=== PATIENT | female | born 2000 | race Caucasian/White ===

== ENCOUNTER 2023-07-03 15:41 | Outpatient (CLI) | payer MEDICAID, SELFPAY | END 2023-07-03 15:42 | disposition home or self-care (01) | LOC: AMB 07-06 12:23 | PROVIDERS: Visit Provider Emergency Medicine Emergency Medical Services | DX: R53.1 Weakness (principal); R06.09 Other forms of dyspnea | CPT/HCPCS: A0425; A0429 ==

== ENCOUNTER 2023-07-03 15:54 | Emergency (ER) | payer MEDICAID, SELFPAY ==
[2023-07-03 15:57] VITALS: BP 140/71; PULSE 75; RESP 18; TEMP 36.7; O2SAT 98; BMI 36.5
--- NOTE | 2023-07-03 16:50 | ED.GENADULT ---
HPI - General Adult General Chief complaint: Chest Pain Stated complaint: Difficulty [id number] heart cond Time Seen by Provider: 07/03/23 15:58 History of Present Illness HPI narrative: This 22-year-old female comes in for evaluation after feeling some lightheadedness and chest tightness when preparing for a trach event just prior to arrival. 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 She reports a prior history of SVT and did have an ablation. She did not really have any symptoms typical of rapid heart rate or irregular heart rate. She states that she felt some tightness in the muscles of her back prior to this and had her dad cracker back. While she was preparing to throw she began to feel more tightness in her chest and had some associated anxiety, lightheadedness, and feeling of shortness of breath. She she feels back to normal currently and arrives here with normal vital signs. Related Data Home Medications Medication Instructions Recorded Confirmed No Known Home Medications 07/03/23 07/03/23 Allergies Allergy/AdvReac Type Severity Reaction Status Date / Time No Known Drug Allergies Allergy Verified 07/03/23 16:07 Review of Systems Status of ROS: Reports: 10 or more systems reviewed and unremarkable except as noted in History and below Narrative: Constitutional: No fevers, no weight gain or loss. Eyes: No discharge. No vision changes. HENT: No congestion, no sore throat, no ear pain. Cardiovascular: No palpitations. Respiratory: No shortness of breath, no wheezes, no cough. Gastrointestinal: No abdominal pain, no vomiting, no diarrhea. Genitourinary: No dysuria, no hematuria. Musculoskeletal: Normal range of motion. Skin: No rashes, no pruritis. Neurological: No dizziness, weakness, sensory change, speech change. Endo/Heme/Allergies: No bruising or bleeding. No polydipsia. Pysch: no suicidality, no anxiety, no insomnia. All other systems reviewed and are negative. PFSH PFSH Social History Smoking Status: Never smoker Do you use any of these nicotine containing products: None How often do you have a drink containing alcohol: never How often do you have six or more drinks on one occasion: Never AUDIT-C Alcohol total score: 0 Non-prescribed substance use: denies use service: No Exam Narrative: Exam Narrative: Constitutional: Well-developed, well-nourished, no acute distress. HEENT: Normocephalic, atraumatic. Neck: Normal range of motion. Nontender. Supple. Heart: Regular. No murmurs. Normal rate. Intact distal pulses. Lungs: Clear to auscultation. No chest discomfort currently. No wheezes, rhonchi, or rales. Abdomen: Normal bowel sounds. Nontender. No rebound tenderness. Genitalia: Deferred. Back: No midline tenderness. Normal range of motion. Extremities: Normal range of motion. No injury. Skin: Intact. No rash. Warm. No erythema or pallor. Neurologic: No altered sensation. No weakness. Alert and oriented. Psychiatric: No suicidality. No anxiety or depression. No insomnia. Nursing notes and vitals signs are reviewed. Const: Vital Signs, click to edit/add: Vital Signs - 24 hr 07/03/23 15:57 Temperature 98.1 F Pulse Rate [Right Pulse Oximeter] 75 Respiratory Rate 18 Blood Pressure [Ri ght Upper Arm] 140/71 H Pulse Oximetry 98 Oxygen Delivery Me thod Room Air Course Vital Signs Vital signs: Initial Vital Signs Temperature 98.1 F 07/03/23 15:57 Temperature Source Temporal Artery Scan 07/03/23 15:57 Pulse Rate 75 07/03/23 15:57 Pulse Rhythm Regular 07/03/23 15:57 Respiratory Rate 18 07/03/23 15:57 Blood Pressure 140/71 H 07/03/23 15:57 Blood Pressure Mean 94 07/03/23 15:57 Blood Pressure Position Semi-Fowlers 07/03/23 15:57 Pulse Oximetry 98 07/03/23 15:57 Oxygen Delivery Method Room Air 07/03/23 15:57 Vital Signs Temperature 98.1 F 07/03/23 15:57 Pulse Rate 75 07/03/23 15:57 Respiratory Rate 18 07/03/23 15:57 Blood Pressure 140/71 H 07/03/23 15:57 Pulse Oximetry 98 07/03/23 15:57 Oxygen Delivery Method Room Air 07/03/23 15:57 Temperature 98.1 F 07/03/23 15:57 Pulse Rate 75 07/03/23 15:57 Respiratory Rate 18 07/03/23 15:57 Blood Pressure 140/71 H 07/03/23 15:57 Pulse Oximetry 98 07/03/23 15:57 Oxygen Delivery Method Room Air 07/03/23 15:57 Medical Decision Making MDM Narrative Medical decision making narrative: This 22-year-old female comes in with her parents because of an episode where she felt tightness in her chest with associated lightheadedness and shortness of breath. These symptoms have completely resolved now and she arrives here with normal vital signs and feeling back to normal. She is involved in some very intense maneuvers on the track team as she throws shot put and swings await to throw for a maximum distance in a competition. The patient's exam is completely normal. I did discuss lab and imaging options with the patient. She does not have any cardiac or pulmonary risk factors. In a process of shared decision-making further testing was declined by the patient and her parents. Her symptoms are more likely musculoskeletal in nature. She did have her back cracked prior to this and may have developed some secondary spasms that triggered anxiety symptoms. The patient is not normally an anxious person but does state that she had anxiety which is expected with symptoms like this. She is okay to be discharged home. She does have follow-up appointment with a doctor. I did describe signs and symptoms that would indicate need for return and re-evaluation. ECG Data Attestation: I personally reviewed and interpreted this ECG as follows: Interpretation: Normal sinus rhythm. Rate is 75 beats per minute. There are no ST or T-wave abnormalities. Discharge Plan Discharge Clinical Impression: Acute chest wall pain Patient Disposition: Home, Self-Care Condition: Improved Additional Instructions: Continue current plans. Increase activity as tolerated. Follow up with MD or return if worsening. Prescriptions: No Action No Known Home Medications Stand Alone Forms: [employer] Info Instructions
== END 2023-07-03 17:24 | disposition home or self-care (01) ==
LOC: ED 17:21
PROVIDERS: Emergency Provider Emergency Medicine Emergency Medical Services
DX: R07.89 Other chest pain (principal)
CPT/HCPCS: 99284